=== PATIENT | male | born 1965 | race Caucasian/White ===

== ENCOUNTER 2023-11-24 00:23 | Inpatient (IN) | payer MEDICARE, MEDICAID ==
[~2023-11-24] VITALS: Ht 175.3 cm; Wt 108.1 kg
[2023-11-24 05:19] LABS: BASOPHILS % (AUTO) 0.8 % (0.0-2.0); EOSINOPHILS % (AUTO) 0.8 % (1.0-6.0); LYMPHOCYTES # (AUTO) 2.2 K/uL (1.0-4.8); LYMPHOCYTES % (AUTO) 24.6 % (22.0-44.0); MEAN CORPUSCULAR HEMOGLOBIN 31.4 pg (26.0-34.0); MEAN CORPUSCULAR VOLUME 90 fL (80-100); MONOCYTES # (AUTO) 1.1 K/uL (0.1-1.0); MONOCYTES % (AUTO) 12.3 % (2.0-9.0); NEUTROPHILS # (AUTO) 5.4 K/uL (1.8-7.7); NEUTROPHILS % (AUTO) 61.5 % (40.0-70.0); PLATELET COUNT (AUTO) 234 K/uL (150-450); RED BLOOD CELL COUNT(AUTO) 4.46 MIL/uL (4.50-5.90); RED CELL DISTRIBUTION WIDTH 13.3 % (11.5-14.5); WHITE BLOOD COUNT (AUTO) 8.8 K/uL (4.5-11.0)
[2023-11-24 05:23] LABS: ANION GAP 10 mmol/L (8-16); CALCIUM, TOTAL 9.1 mg/dL (8.8-10.5); CARBON DIOXIDE 28 mmol/L (22-29); CHLORIDE 103 mmol/L (98-107); CREATININE 0.97 mg/dL (0.60-1.30); GLOMERULAR FILTR. RATE CALC > 60 mL/min (>60); GLUCOSE,RANDOM 85 mg/dL (70-110); POTASSIUM 3.6 mmol/L (3.5-5.1); SODIUM SERUM 141 mmol/L (136-145); UREA NITROGEN, BLOOD 18 mg/dL (7-18)
[2023-11-24 05:29] LABS: ALANINE AMINOTRANSFERASE 31 U/L (12-78); ALBUMIN 3.8 g/dL (3.4-5.0); ALKALINE PHOSPHATASE 51 U/L (46-116); ASPARTATE AMINOTRANSFERASE 45 U/L (15-37); BILIRUBIN,TOTAL 3.7 mg/dL (0.1-1.0); TOTAL PROTEIN, SERUM 6.7 g/dL (6.4-8.2)
[2023-11-24 05:33] LABS: ALCOHOL, BLOOD (SERUM) < 3 mg/dL (0-10)
[2023-11-24] MEDS ORDERED: HALOPERIDOL 5 MG TABLET PO PRN (06:15)
[2023-11-24] MEDS ORDERED: ZOLPIDEM TARTRATE 10 MG TABLET PO PRN (06:15)
[2023-11-24] MEDS ORDERED: LORazepam 2 MG TABLET PO PRN (06:15)
[2023-11-24 07:06] LABS: COVID AG,FIA SOURCE NASAL SWAB
[2023-11-24 07:31] LABS: SARS-COV2 (COVID) ANTIGEN,FIA Negative (Negative)
[2023-11-24 08:47] LABS: APPEARANCE,URINE CLEAR (CLEAR); BILIRUBIN,URINE NEGATIVE (NEGATIVE); COLOR,URINE YELLOW (YELLOW); GLUCOSE, URINE (UA) NEGATIVE (NEGATIVE); LEUKOCYTE ESTERASE ,URINE NEGATIVE (NEGATIVE); NITRATE,URINE NEGATIVE (NEGATIVE); OCCULT BLOOD,URINE NEGATIVE (NEGATIVE); PH,URINE 5.5 (5.0-8.0); PROTEIN,URINE TRACE mg/dL (NEGATIVE); SPECIFIC GRAVITIY, URINE 1.022 (1.003-1.030)
[2023-11-24 08:58] LABS: ALCOHOL, URINE DRUG SCREEN NEGATIVE (NEGATIVE); AMPHET/METH SCREEN,URINE NEGATIVE (NEGATIVE); BARBITURATE SCREEN, URINE NEGATIVE (NEGATIVE); BENZODIAZEPINES SCREEN,URINE NEGATIVE (NEGATIVE); CANNABINOID SCREEN,URINE NEGATIVE (NEGATIVE); COCAINE SCREEN,URINE NEGATIVE (NEGATIVE); METHADONE SCREEN, URINE NEGATIVE (NEGATIVE); OPIATE SCREEN,URINE NEGATIVE (NEGATIVE); PHENCYCLIDINE SCREEN,URINE NEGATIVE (NEGATIVE)
[2023-11-24 09:03] LABS: PH,URINE DRUG SCREEN 5.5 (5.0-8.0)
[2023-11-25 10:42] VITALS: BP 102/77; PULSE 69; RESP 18; TEMP 97.5; O2SAT 99
[2023-11-25] MEDS ORDERED: INFLUENZA VIRUS VACCINE QVS 2023-24 (6MO+)/PF 60 MCG/0.5 ML SYRINGE IM. ONE (12:15)
[2023-11-25] MEDS ORDERED: PNEUMOCOCCAL VACCINE POLYVALENT 0.5 ML SYRINGE [PPSV23] IM. ONE (12:15)
[2023-11-25] MEDS ORDERED: BACITRACIN 28 GM OINTMENT TP PRN (15:45)
[2023-11-25] MEDS ORDERED: ALBUTEROL SULFATE HFA 90 MCG/PUFF 8 GM INHALER IH PRN (15:45)
[2023-11-25] MEDS ORDERED: BENZOCAINE/MENTHOL LOZENGE PO PRN (15:45)
[2023-11-25] MEDS ORDERED: LOPERAMIDE HCL 2 MG CAPSULE PO PRN (15:45)
[2023-11-25] MEDS ORDERED: PETROLATUM,WHITE 28 GM JELLY TP PRN (15:45)
[2023-11-25] MEDS ORDERED: DOCUSATE SODIUM 100 MG CAPSULE PO PRN (15:45)
[2023-11-25] MEDS ORDERED: MAGNESIUM HYDROXIDE SUSPENSION 30 ML UDCUP PO PRN (15:45)
[2023-11-25] MEDS ORDERED: MAG HYDROX/ALUMINUM HYD/SIMETH ES 30 ML SUSPENSION UDCUP PO PRN (15:45)
[2023-11-25] MEDS ORDERED: ONDANSETRON HCL 4 MG TABLET PO PRN (15:45)
[2023-11-25] MEDS ORDERED: OMEPRAZOLE 20 MG CAPSULE PO PRN (15:45)
[2023-11-25] MEDS ORDERED: CloNIDine HCL 0.1 MG TABLET PO PRN (15:45)
[2023-11-25 20:56] VITALS: BP 114/71; PULSE 78; RESP 18; TEMP 97.6
[2023-11-25] MEDS: ACETAMINOPHEN 325 MG TABLET PO PRN (20:56)
[2023-11-25 21:56] VITALS: RESP 18
[2023-11-26 08:14] VITALS: BP 146/80; RESP 19; O2SAT 98
[2023-11-26 08:15] VITALS: BP 146/80; PULSE 66; RESP 19; TEMP 97.8; O2SAT 98
[2023-11-26 20:24] VITALS: BP 131/76; PULSE 72; RESP 18; TEMP 97.5
[2023-11-27 09:26] VITALS: BP 151/76; PULSE 60; RESP 18; TEMP 97.7; O2SAT 99
[2023-11-27 18:10] VITALS: BP 154/80; PULSE 56; RESP 18; TEMP 97.7; O2SAT 100
[2023-11-27] MEDS: IBUPROFEN 600 MG TABLET PO PRN ×2 (18:13→18:21)
[2023-11-27] MEDS: ACETAMINOPHEN 325 MG TABLET PO PRN ×2 (18:18→18:22)
[2023-11-27 20:09] VITALS: BP 117/66; PULSE 68; RESP 18; TEMP 97.8; O2SAT 98
[2023-11-28 09:23] VITALS: BP 146/96; PULSE 73; RESP 18; TEMP 97.5; O2SAT 97
[2023-11-28 20:17] VITALS: BP 142/98; PULSE 76; RESP 18; TEMP 98; O2SAT 97
[2023-11-29 08:09] VITALS: BP 154/79; PULSE 60; RESP 18; TEMP 98.2; O2SAT 98
[2023-11-29 20:17] VITALS: BP 124/78; PULSE 89; RESP 18; TEMP 97.9; O2SAT 98
[2023-11-30 10:09] VITALS: BP 133/84; PULSE 67; RESP 18; TEMP 97; O2SAT 99
[2023-11-30 20:17] VITALS: BP 122/77; PULSE 73; RESP 18; TEMP 97.1
[2023-12-01 13:05] VITALS: BP 123/82; PULSE 71; RESP 16; TEMP 97.7; O2SAT 100
[2023-12-01 20:59] VITALS: BP 137/80; PULSE 72; RESP 18; TEMP 98.3; O2SAT 98
[2023-12-02 10:07] VITALS: BP 120/81; PULSE 76; RESP 17; TEMP 97.8; O2SAT 97
[2023-12-02 21:52] VITALS: BP 131/85; PULSE 87; RESP 18; TEMP 98.5; O2SAT 98
[2023-12-03 14:15] VITALS: BP 114/72; PULSE 68; RESP 17; TEMP 97.9; O2SAT 98
[2023-12-03 20:18] VITALS: BP 106/64; PULSE 91; RESP 18; TEMP 97.7; O2SAT 99
== END 2023-12-04 16:15 | disposition home or self-care (01) | DRG 885 ==
LOC: EMS 00:31 → 3EC 11-25 06:05 → 3EI 11-30 19:18
PROVIDERS: ADMIT Psychiatry & Neurology Psychiatry; ATTEND Psychiatry & Neurology Psychiatry
DX: F25.9 Schizoaffective disorder, unspecified (principal); I10 Essential (primary) hypertension; F41.9 Anxiety disorder, unspecified; G47.00 Insomnia, unspecified; K59.00 Constipation, unspecified; Z20.822 Contact with and (suspected) exposure to COVID-19; E66.9 Obesity, unspecified; F84.0 Autistic disorder; Z53.20 Procedure and treatment not carried out because of patient's decision for unspecified reasons; Z68.35 Body mass index [BMI] 35.0-35.9, adult
CPT/HCPCS: 80053; 80307; 81003; 85025; 99285; G0480